=== PATIENT | female | born 1965 | race Caucasian/White ===

== ENCOUNTER → 2018-02-02 13:51 | Outpatient (CLI) | payer OTHER, SELFPAY ==
--- NOTE | 2018-02-02 | DI.MRI.S_ITS ---
PROCEDURE: MR HEAD/BRAIN WO/W CON INDICATIONS: MULTIPLE SCLEROSIS TECHNIQUE: Noncontrast sagittal and axial FLAIR, axial and coronal T2 fast spin echo, axial VIBE, axial gradient echo, axial diffusion and ADC through the brain. After the administration of contrast, axial and coronal VIBE with fat saturation through the brain. COMPARISON: [facility], , MR CERVICAL SPINE WO/W CON, 02/02/2018, 14:25. Outside Facility, RG, MRI C-SPINE WITH CONTRAST, 12/26/2016, 8:14. Outside Facility, RG, MRI HEAD W/WO CONTRAST, 12/26/2016, 7:36. Outside Facility, RG, MRI C-SPINE WITH CONTRAST, 07/23/2015, 9:46. Outside Facility, RG, MRI HEAD W/WO CONTRAST, 07/23/2015, 9:13. FINDINGS: Image quality: Excellent. CSF spaces: Ventricles are normal in size and shape. Basal cisterns are patent. No extra-axial fluid collections. Brain: No intracranial bleeds or mass effects. There are bilateral areas of white matter signal change, most notably within the left frontal periventricular, right frontal, left parietal lobes. These appear unchanged. No definite increase in size or number since prior study dated 12/26/16. Lyons-white matter interface appears intact. No suspicious white matter lesions. No abnormal intracranial enhancement. Diffusion weighted images show no acute ischemic insults. Brainstem appears normal. Normal intravascular flow voids are present. Skull and face: Calvarial marrow signal is normal. Incidental hyperostosis frontalis as before. Orbits appear normal. Sinuses: Sinuses and mastoids are clear. IMPRESSION: Unchanged examination since 12/26/16. Redemonstration of bilateral scattered white matter signal changes which are grossly unchanged in size and number, in keeping with the patient's given clinical history of demyelination disorder. No abnormal enhancement identified. Dictated by: Maynor Mancuso M.D. on 02/03/2018 at 13:36 Approved by: Maynor Mancuso M.D. on 02/03/2018 at 13:43
--- NOTE | 2018-02-02 | DI.MRI.S_ITS ---
PROCEDURE: MR CERVICAL SPINE WO/W CON INDICATIONS: MULTIPLE SCLEOROSIS TECHNIQUE: Noncontrast sagittal T1 spin echo and T2 fast spin echo, sagittal STIR, sagittal PD fast spin echo, foraminal oblique sagittal T2 fast spin echo, axial gradient echo or T2 fast spin echo through the cervical spine. After the administration of contrast, sagittal and axial T1 spin echo with fat saturation through the cervical spine. COMPARISON: [facility], , MR HEAD/BRAIN WO/W CON, 02/02/2018, 14:01. Outside Facility, RG, MRI C-SPINE WITH CONTRAST, 12/26/2016, 8:14. Outside Facility, RG, MRI HEAD W/WO CONTRAST, 12/26/2016, 7:36. Outside Facility, RG, MRI C-SPINE WITH CONTRAST, 07/23/2015, 9:46. Outside Facility, RG, MRI HEAD W/WO CONTRAST, 07/23/2015, 9:13. FINDINGS: Image quality: Excellent. Alignment and curvature: Straightening of the normal cervical lordosis. Marrow: Marrow demonstrates normal overall signal. Spinal cord: Previously described cord signal change primarily at the C3 level is less conspicuous since 12/26/16. Previously described T2 hyperintensity and cord signal change at the level of T3 is grossly stable. No abnormal cord enhancement is seen. No cerebellar tonsillar herniation. Paraspinous soft tissues: No paravertebral masses or suspicious enhancement. C2-C3: Normal appearance. C3-C4: Normal appearance. C4-C5: Bilateral uncovertebral arthropathy and posterior intervening disc osteophyte complex, and bilateral facet arthropathy, mild. No canal stenosis. Mild bilateral foraminal narrowing. C5-C6: Bilateral uncovertebral arthropathy and posterior intervening disc osteophyte complex, and bilateral facet arthropathy. No left foraminal stenosis. Mild right foraminal narrowing. C6-C7: Bilateral uncovertebral arthropathy and posterior intervening disc osteophyte complex, and bilateral facet disease. Minimal central canal narrowing. No right foraminal stenosis minimal left foraminal narrowing. C7-T1: Normal appearance. IMPRESSION: No abnormal cord enhancement. Previously seen cord signal abnormality at C3 is less conspicuous compared to 12/26/16, and quite subtle at this time. Mild thoracic cord signal abnormality at the level of T3, which is grossly unchanged. Mild cervical disc degeneration and facet arthropathy Dictated by: Maynor Mancuso M.D. on 02/03/2018 at 13:43 Approved by: Maynor Mancuso M.D. on 02/03/2018 at 14:03
== END ==
PROVIDERS: Family Provider Chiropractor; Visit Provider Psychiatry & Neurology Neurology
DX: G35 Multiple sclerosis (principal); M50.321 Other cervical disc degeneration at C4-C5 level; M47.812 Spondylosis without myelopathy or radiculopathy, cervical region
CPT/HCPCS: 70553; 72156; A9579

== ENCOUNTER 2018-02-05 18:28 | Emergency (ER) | payer OTHER, SELFPAY ==
--- NOTE | 2018-02-05 18:30 | ED.LOWEXIN ---
HPI - Extremity Injury (Lower) <ROBYN Wright - Last Filed: 02/05/18 22:12> General Chief Complaint: Extremity Injury, Lower Stated Complaint: Broken L Ankle Time Seen by Provider: 02/05/18 18:30 Source: patient Mode of arrival: other Limitations: no limitations History of Present Illness HPI Narrative: 53-year-old female with history of bipolar disorder and is a smoker here for complaint of pain into her left ankle. She has states that earlier today she stepped of 2 steps awkwardly causing her to have ground level fall. Afterwards she had pain into her lateral left ankle. She denies hitting her head. She denies any other injuries. Increased pain with weight-bearing. She was seen at her clinic on or cuts iron and was splinted and sent here for imaging. She denies any direct trauma to the ankle. She reports increased swelling to the lateral aspect of the left ankle. Related Data Home Medications Medication Instructions Recorded Confirmed eszopiclone 1 mg PO PRN PRN #0 05/07/16 Previous Rx's Medication Instructions Recorded oxcarbazepine 150 mg PO BID #60 05/07/16 Allergies Allergy/AdvReac Type Severity Reaction Status Date / Time No Known Allergies Allergy Uncoded 07/01/17 12:41 Review of Systems <ROBYN Wright - Last Filed: 02/05/18 22:12> Constitutional Denies chills, Denies fever(s), Denies lethargy and Denies weakness Eyes Denies change in vision, Denies eye discharge, Denies irritation and Denies loss of vision Cardiovascular Denies chest pain, Denies irregular heart rhythm, Denies lightheadedness, Denies palpitations, Denies dyspnea, Denies dyspnea on exertion and Denies orthopnea Respiratory Denies cough, Denies dyspnea, Denies dyspnea on exertion and Denies wheezing Gastrointestinal Gastrointestinal: Denies abdominal pain, Denies change in bowel habits, Denies diarrhea, Denies nausea and Denies vomiting Genitourinary Denies hematuria, Denies flank pain, Denies urinary incontinence and Denies urinary urgency Musculoskeletal Comments: Left ankle pain and swelling Integumentary/Breasts Denies pruritus, Denies erythema, Denies rash and Denies wounds Neurologic Denies confusion, Denies loss of vision and Denies weakness Psychiatric Denies anxiety, Denies confusion, Denies depression, Denies homicidal ideation and Denies suicidal ideation Endocrine Denies palpitations Hematologic/Lymphatic Denies easy bruising Allergic/Immunologic Denies wheezing Exam <ROBYN Wright - Last Filed: 02/05/18 22:12> Initial Vital Signs Initial Vital Signs: Vital Signs Temperature 98.3 F 02/05/18 18:37 Pulse Rate 67 02/05/18 18:37 Respiratory Rate 18 02/05/18 18:37 Blood Pressure 135/76 02/05/18 18:37 Pulse Oximetry 97 02/05/18 18:37 Const General: cooperative and well developed Nutritional Appearance: well nourished Orientation: alert, awake, oriented x3 and not confused HENMT Mouth: oral mucosae normal and moist mucous membranes Eyes Conjunctivae: conjunctivae normal Sclera: sclerae normal Pupils: PERRL EOM: EOM intact bilaterally Resp Effort & Inspection: normal respiratory effort, able to speak in complete sentences, no respiratory distress and no use of accessory muscles Auscultation: clear to auscultation bilaterally, no rales, no rhonchi and no wheezes Cardio Rate: regular rate Rhythm: regular rhythm Heart Sounds: no click, no gallops, no murmurs and no rubs Pulses: normal peripheral pulses GI Inspection: non-distended Palpation: soft, no hepatosplenomegaly, No guarding, No pulsatile mass and No tender Auscultation: normal bowel sounds Skin General: no rashes or lesions noted, No jaundice and No petechiae Neuro General: alert, oriented x3, gait normal and no focal motor deficits Speech: speech normal Extrem Other: Swelling and tenderness to the lateral aspect of the left ankle. No deformities. Distal sensation is intact. Distal range of motion is intact. Distal pulses are intact <Viji Browning DO - Last Filed: 02/06/18 01:12> Initial Vital Signs Initial Vital Signs: Vital Signs Temperature 98.3 F 02/05/18 18:37 Pulse Rate 67 02/05/18 18:37 Respiratory Rate 18 02/05/18 18:37 Blood Pressure 135/76 02/05/18 18:37 Pulse Oximetry 97 02/05/18 18:37 Course <ROBYN Wright - Last Filed: 02/05/18 22:12> Orders Ordered: ED Orders 02/05/18 18:32 XR ankle LT min 3V Stat Vital Signs - 8 hr 02/05/18 18:37 02/05/18 20:18 Temperature 98.3 F Pulse Rate 67 64 Pulse Rate [Left Dorsalis Pedis] 67 Respiratory Rate 18 16 Blood Pressure 135/76 126/94 H Pulse Oximetry 97 98 <Viji Browning DO - Last Filed: 02/06/18 01:12> Orders Ordered: ED Orders 02/05/18 18:32 XR ankle LT min 3V Stat Vital Signs - 8 hr 02/05/18 18:37 02/05/18 20:18 Temperature 98.3 F Pulse Rate 67 64 Pulse Rate [Left Dorsalis Pedis] 67 Respiratory Rate 18 16 Blood Pressure 135/76 126/94 H Pulse Oximetry 97 98 MDM - Extremity Injury (Lower) <ROBYN Wright - Last Filed: 02/05/18 22:12> Imaging Data Ankle x-ray : Radiologist's impression: [address] [address] XRay Report Signed Patient: Neeta Alatorre RMR#: [id number] : 1965Acct:[id number] Age/Sex: 53 / FDate of Service: 02/05/18 Loc: ED Accession Number: [id number] Procedure: XR ankle LT min 3V Ordering Provider: Olvin Calhoun PROCEDURE: XR ANKLE LT MIN 3V INDICATIONS: injury, pain TECHNIQUE: 3 views of the ankle were acquired. COMPARISON: None. FINDINGS: Bones: No fractures or dislocations. Ankle mortise is normally aligned. No suspicious bony lesions. Soft tissues: No tibiotalar joint effusion. Achilles tendon appears normal. IMPRESSION: No trauma found. Dictated by: Augustine Santo M.D. on 02/05/2018 at 19:31 Approved by: Augustine Santo M.D. on 02/05/2018 at 19:32 [facility] Narrative Medical decision making narrative: X-ray of the left ankle was obtained and is negative for any acute findings. Signs and symptoms presents as a sprain into the left ankle. She is placed in a gel stirrup splint for comfort and support. She is also provided with crutches for nonweightbearing. Slowly advance activity as tolerated. [id number] Tylenol or Motrin as needed for any discomfort. Follow up with primary care provider the next few days for re-evaluation. For any worsening symptoms return emergency room for Discharge Plan Departure Patient Disposition: Home Clinical Impression: Left ankle sprain Discharge Date/Time: 02/05/18 20:20 Interventions: ED Discharge Assessment Last Done: 02/05/18 20:18 Instructions: DI for Ankle Sprain Activity Restrictions/Additional Instructions: X-ray of the left ankle was negative for any fractures. Signs and symptoms presents as a sprain to the left ankle. You have been placed in a splint for comfort and support use as directed. Use crutches for nonweightbearing until you are able to bear weight pain free. Use [id number] Tylenol or Motrin as needed for any discomfort. Ice and elevation help with any swelling. Slowly advance activity as tolerated. Follow up with her primary care provider. For any worsening symptoms return to the emergency room. Prescriptions: No Action eszopiclone 1 MG tablet 1 mg PO PRN PRNQty: 0 RF: 0 oxcarbazepine 150 MG tablet 150 mg PO BID Qty: 60 RF: 0 Referrals: Replaced By [facility] [Provider Group] <Viji Browning DO - Last Filed: 02/06/18 01:12> Cosign ED Attending Cosignature Attestation: I was immediately available in the department for consultation. This documentation has been reviewed and I agree with assessment and plan. Supervised by Viji Browning DO
[2018-02-05 18:37] VITALS: BP 135/76; PULSE 67; RESP 18; TEMP 36.8; O2SAT 97; BMI 30.5
[2018-02-05 20:18] VITALS: BP 126/94; PULSE 64; RESP 16; O2SAT 98
--- NOTE | 2018-02-05 20:19 | PC.NURSE ---
Pt states Pain is tolerable, reports 3/10 pain on discharge
== END 2018-02-05 20:20 | disposition home or self-care (01) ==
PROVIDERS: Emergency Provider Nurse Practitioner Family; Family Provider Chiropractor
DX: S93.402A Sprain of unspecified ligament of left ankle, initial encounter (principal); W10.8XXA Fall (on) (from) other stairs and steps, initial encounter
CPT/HCPCS: 29540; 73610; 99283

== ENCOUNTER 2018-08-09 14:20 | Emergency (ER) | payer BC, SELFPAY ==
[2018-08-09 14:24] VITALS: BP 113/73; PULSE 61; RESP 16; TEMP 36.7; O2SAT 100; BMI 29.7
[2018-08-09 14:53] LABS: Prothrombin Time 11.4 SECONDS (10.1-12.7)
[2018-08-09 14:56] LABS: PTT Partial Thromboplastin Tim 32 SECONDS (26.4-36.2)
[2018-08-09 14:57] LABS: Add Manual Diff / Slide Review NO; Basophils Absolute Auto 0 /uL (0-100); Basophils Percent Auto 0.7 % (0-2); Eosinophils Absolute Auto 100 /uL (0-450); Eosinophils Percent Auto 1.3 % (2-4); Hematocrit 41.9 % (36-46); Hemoglobin 14.1 g/dL (12.0-16.0); Lymphocytes Absolute Auto 600 /uL (1100-4500); Mean Corpuscular HGB Conc 33.8 % (30-36); Mean Corpuscular Hemoglobin 31.9 PG (26-34); Mean Corpuscular Volume 94.5 fL (80-100); Monocytes Absolute Auto 700 /uL (0-900); Monocytes Percent Auto 17.6 % (3-14); Neutrophils Absolute Auto 2800 /uL (1500-7000); Neutrophils Percent Auto 66.4 % (50-75); Platelet Count 229 X10^3/uL (150-400); Red Blood Cell Count 4.43 X10^6/uL (4.0-5.2); Red Cell Distribution Width 13.6 % (11.6-14.8); White Blood Cell Count 4.1 X10^3/uL (4.5-11.0)
[2018-08-09 14:58] LABS: Alanine Aminotransferase 17 IU/L (9-52); Albumin 4.5 g/dL (3.5-5.0); Albumin Globulin Ratio 1.6 (1.0-2.8); Alkaline Phosphatase 50 U/L (38-126); Aspartate Aminotransferase 24 IU/L (14-36); Bilirubin Total 0.4 mg/dL (0.2-1.3); Blood Urea Nitrogen 14 mg/dL (7-17); Calcium 9.9 mg/dL (8.4-10.2); Carbon Dioxide 27 mmol/L (22-32); Chloride 103 mmol/L (98-107); Estimated Glomerular Filt Rate > 60.0 mL/min (>60); Globulin 2.9 g/dL (1.7-4.1); Glucose 82 mg/dL (70-100); HEMOLYSIS 23 (0-50); Lipase 125 U/L (23-300); Potassium 3.7 mmol/L (3.4-5.1); Sodium 141 mmol/L (137-145); Total Protein 7.4 g/dL (6.3-8.2)
[2018-08-09 15:15] LABS: D Dimer < 200 ng/mL (<230)
--- NOTE | 2018-08-09 15:48 | DI.US.S_ITS ---
PROCEDURE: US ABDOMEN LIMITED INDICATIONS: RIGHT UPPER QUADRANT PAIN TECHNIQUE: Real-time focused scanning was performed of the abdomen, with image documentation. COMPARISON: None. FINDINGS: The gallbladder is slightly contracted. However the patient was suboptimally prepped (non-n.p.o. status). Otherwise, the gallbladder is unremarkable. No wall thickening is seen. No sonographic Call's sign or pericholecystic fluid. Pancreas grossly unremarkable. No intra-or extra hepatic bile duct dilatation seen IMPRESSION: Overall, unremarkable examination as above. Dictated by: Maynor Mancuso M.D. on 08/09/2018 at 16:38 Approved by: Maynor Mancuso M.D. on 08/09/2018 at 16:40
[2018-08-09 16:00] VITALS: BP 118/63; PULSE 56; RESP 16; O2SAT 100
--- NOTE | 2018-08-09 17:42 | DI.CT.S_ITS ---
PROCEDURE: CT ABDOMEN PELVIS W CON INDICATIONS: RUQ pain x 3 day, tender to palp TECHNIQUE: After the administration of intravenous contrast, 5 mm thick sections acquired from the diaphragm to the symphysis. 5 mm coronal and sagittal reformats were acquired. For radiation dose reduction, the following was used: automated exposure control, adjustment of mA and/or kV according to patient size. COMPARISON: [facility], , ABDOMEN LIMITED, 08/09/2018, 16:07. FINDINGS: Image quality: Excellent. ABDOMEN: Lung bases: Lung bases are clear. Heart size is normal. Solid organs: Liver is normal in size and enhancement. Gallbladder wall is not thickened. Biliary system is non dilated. Pancreas enhances normally. Spleen is normal in size and enhancement. No adrenal nodules. Kidneys demonstrate normal size and enhancement, without hydronephrosis. At the inferior pole of the right kidney, there is a nonobstructing stone seen and measures 5 mm. Peritoneum and bowel: Bowel loops demonstrate normal wall thickness and caliber. No free fluid or air. Nodes and vessels: No retroperitoneal or mesenteric adenopathy by size criteria. Aorta and inferior vena cava are normal in size. Miscellaneous: There is a trivial fat-containing paraumbilical hernia present. PELVIS: Genitourinary: Bladder wall thickness is normal. Miscellaneous: No inguinal hernias or adenopathy. Bones: No suspicious bony lesions. There is a mild central compression deformity seen of L5, without acute features. No acute vertebral body compression fractures. Mild levoconvex scoliotic curvature is noted. IMPRESSION: No imaging explanation is found for this patient's presenting history of right upper quadrant pain. Incidental note is made of: 5 mm nonobstructing right-sided kidney stone Levoconvex scoliotic curvature Trivial fat-containing periumbilical hernia Dictated by: Tylor Wells M.D. on 08/09/2018 at 17:07 Approved by: Tylor Wells M.D. on 08/09/2018 at 17:10
--- NOTE | 2018-08-09 17:45 | ED.ABDPAIN ---
HPI - Abdominal Pain <ROBYN Sanchez - Last Filed: 08/09/18 23:19> General Chief Complaint: Abdominal Pain Stated Complaint: gallbladder issues Time Seen by Provider: 08/09/18 15:04 Source: patient Mode of arrival: ambulatory Limitations: no limitations History of Present Illness HPI narrative: 53-year-old female with a history of bipolar disorder, presents the emergency department today complaining of right upper quadrant pain x 1 month after being evaluated by primary care provider. Pain is constant 3/10 aching, worse with palpation. Associated shortness of breath adn fatigue x 3 weeks, states that she feels like there is pressure in her abdomen. Also complains of constipation and occasional bouts of nausea. Patient had a similar episode last year at this time she presented to the emergency department and her CT scan was negative at this time. Her primary care provider was concerned that she might have gallbladder dyskinesia. Denies chest pain, shortness of breath that is worse with activity, vomiting, worsening pain with eating, orthopnea, fevers, or chills. MD complaint: abdominal pain Onset (ago): week(s) Pain Consistency: constant and intermittent Location: RUQ Severity scale (1-10): 3 Quality: fullness and other (fullness) Radiation: none Exacerbating factors: movement Associated symptoms: other (SOB) Related Data Patient : No Home Medications Medication Instructions Recorded Confirmed eszopiclone 1 mg PO PRN PRN #0 05/07/16 08/09/18 fingolimod [Gilenya] 0.5 mg PO DAILY 08/09/18 08/09/18 gabapentin 100 mg PO TID 08/09/18 08/09/18 lithium carbonate 150 mg PO BID 08/09/18 08/09/18 Previous Rx's Medication Instructions Recorded oxcarbazepine 150 mg PO BID #60 05/07/16 sulfamethoxazole-trimethoprim 1 tab PO BID #6 tab 08/09/18 Allergies Allergy/AdvReac Type Severity Reaction Status Date / Time No Known Allergies Allergy Uncoded 07/01/17 12:41 Review of Systems <ROBYN Sanchez - Last Filed: 08/09/18 23:19> Constitutional Denies chills, Reports fatigue (for 1 month), Denies fever(s) and Denies weakness Eyes Denies change in vision, Denies eye discharge and Denies loss of vision ENT Ears, Nose, Mouth, and Throat: Denies change in voice and Denies neck pain Cardiovascular Denies chest pain, Denies irregular heart rhythm, Denies lightheadedness, Denies palpitations, Denies dyspnea, Denies dyspnea on exertion and Denies orthopnea Respiratory Denies cough, Denies dyspnea, Denies dyspnea on exertion and Denies wheezing Gastrointestinal Gastrointestinal: Reports abdominal pain (RUQ), Denies change in bowel habits, Reports constipation (For the past 3 days), Denies cramping, Denies diarrhea, Reports nausea (intermittent) and Denies vomiting Genitourinary Denies hematuria, Denies flank pain, Denies urinary incontinence, Denies urinary urgency and Reports other ([place] during intercourse ) Musculoskeletal Denies neck pain Integumentary/Breasts Denies pruritus, Denies erythema, Denies rash and Denies wounds Neurologic Denies confusion, Denies loss of vision and Denies weakness Psychiatric Denies anxiety, Denies confusion and Denies depression Endocrine Reports fatigue (for 1 month) and Denies palpitations Hematologic/Lymphatic Denies easy bruising Allergic/Immunologic Denies wheezing PFSH <ROBYN Sanchez - Last Filed: 08/09/18 23:19> Medical History Multiple sclerosis (Chronic) Surgical History Status post breast reduction Family History Brother Age: 64 Alcoholic Father Heart disease Essential hypertension High cholesterol Mental health problem Mother Alcoholic Social History Smoking Status: Former smoker Family History Brother Age: 64 Alcoholic Father Heart disease Essential hypertension High cholesterol Mental health problem Mother Alcoholic Social History Smoking Status: Former smoker Exam <ROBYN Sanchez - Last Filed: 08/09/18 23:19> Initial Vital Signs Initial Vital Signs: Vital Signs Temperature 98.1 F 08/09/18 14:24 Pulse Rate 61 05/20/19 14:24 Respiratory Rate 16 08/09/18 14:24 Blood Pressure 113/73 08/09/18 14:24 Pulse Oximetry 100 08/09/18 14:24 Const General: cooperative and well developed Nutritional Appearance: well nourished Orientation: alert, awake, oriented x3 and not confused [facility] Head: normocephalic and atraumatic Nose: external nose normal Mouth: oral mucosae normal and moist mucous membranes Eyes General: appearance normal, both eyes and all related structures Eyelids: eyelids normal Conjunctivae: conjunctivae normal Sclera: sclerae normal Pupils: PERRL EOM: EOM intact bilaterally Neck Neck: normal visual inspection, trachea midline, No lymphadenopathy, No midline deformity and No JVD Lymphatic: No lymphedema Chest Chest: normal inspection of the chest Resp Effort & Inspection: normal respiratory effort, able to speak in complete sentences, no respiratory distress and no use of accessory muscles Auscultation: clear to auscultation bilaterally, no rales, no rhonchi and no wheezes Cardio Rate: regular rate Rhythm: regular rhythm Heart Sounds: no click, no gallops, no murmurs and no rubs Pulses: normal peripheral pulses GI Inspection: non-distended Palpation: soft, no hepatosplenomegaly, guarding, No pulsatile mass and tender (RUQ tenderness with deep palpation, + call's sign. ) Percussion: normal to percussion Auscultation: normal bowel sounds Back/Spine/Pelvis Back: No CVA tenderness Cervical Spine: cervical ROM normal and No pain with cervical ROM Skin General: no rashes or lesions noted, No jaundice and No petechiae Neuro General: alert, oriented x3, gait normal and no focal motor deficits Speech: speech normal Extrem General: full ROM, no clubbing, cyanosis or edema, no pedal edema and no calf tenderness Psych Appearance: well kempt Mental Status: mental status grossly normal Attitude: cooperative Thought Content: normal and suicidality Judgment: judgment good <Viji Browning, - Last Filed: 08/11/18 18:36> Initial Vital Signs Initial Vital Signs: Vital Signs Temperature 98.1 F 08/09/18 14:24 Pulse Rate 61 08/09/18 14:24 Respiratory Rate 16 08/09/18 14:24 Blood Pressure 113/73 08/09/18 14:24 Pulse Oximetry 100 08/09/18 14:24 Course <ROBYN Sanchez - Last Filed: 08/09/18 23:19> Course Narrative: The patient initially hiatal scan, discussed with patient that was not possible to order in the emergency department. Discussed pros and cons to abdominal CT, patient agreed she would like to obtain an abdominal CT. Orders Ordered: ED Orders 08/09/18 14:28 Complete Blood Count AUTO DIFF Stat Comprehensive Metabolic Panel Stat Lipase Stat Partial Thromboplastin Time Stat Prothrombin Time INR Stat 08/09/18 14:29 DD [D Dimer] Stat 08/09/18 15:04 EKG-12 Lead Stat 08/09/18 15:48 US abdomen limited Stat 08/09/18 17:42 CT abdomen pelvis w con Stat Reevaluation(s) Reevaluation #1: Consultations Consultation #1: Staffed with Dr. Browning who agrees with plan of care. Vital Signs - 8 hr 08/09/18 16:00 08/09/18 18:00 Pulse Rate 56 L 60 Respiratory Rate 16 17 Blood Pressure [Right Arm] 118/63 143/71 H Pulse Oximetry 100 100 <Viji Browning DO - Last Filed: 08/11/18 18:36> Orders Ordered: ED Orders 08/09/18 14:28 Complete Blood Count AUTO DIFF Stat Comprehensive Metabolic Panel Stat Lipase Stat Partial Thromboplastin Time Stat Prothrombin Time INR Stat 08/09/18 14:29 DD [D Dimer] Stat 08/09/18 15:04 EKG-12 Lead Stat 08/09/18 15:48 US abdomen limited Stat 08/09/18 17:42 CT abdomen pelvis w con Stat Vital Signs - 8 hr 08/09/18 16:00 08/09/18 18:00 Pulse Rate 56 L 60 Respiratory Rate 16 17 Blood Pressure [Right Arm] 118/63 143/71 H Pulse Oximetry 100 100 MDM - Abdominal Pain <ROBYN Sanchez - Last Filed: 08/09/18 23:19> Differential Diagnosis Differential diagnosis: Likely calculus of kidney and other (gallbladder dyskinesia ) Medical Records Attestation: I reviewed the patient's medical records. Lab Data Attestation: I reviewed the patient's lab results. Result diagrams: 08/09/18 14:28 08/09/18 14:28 Lab Results 08/09/18 08/09/18 08/09/18 Range/Units 14:28 14:28 14:28 WBC 4.1 L (4.5-11.0) X10^3/uL RBC 4.43 (4.0-5.2) X10^6/uL Hgb 14.1 (12.0-16.0) g/dL Hct 41.9 (36-46) % MCV 94.5 (80-100) fL MCH 31.9 (26-34) PG MCHC 33.8 (30-36) % RDW 13.6 (11.6-14.8) % Plt Count 229 (150-400) X10^3/uL Neut % (Auto) 66.4 (50-75) % Lymph % (Auto) 14.0 L (25-40) % [place] % (Auto) 17.6 H (3-14) % Eos % (Auto) 1.3 L (2-4) % Baso % (Auto) 0.7 (0-2) % Neut # (Auto) 2800 (3875-1522) /uL Lymph # (Auto) 600 L (6518-7433) /uL [place] # (Auto) 700 (0-900) /uL Eos # (Auto) 100 (0-450) /uL Baso # (Auto) 0 (0-100) /uL PT 11.4 (10.1-12.7) SECONDS INR 1.0 (0.9-1.3) APTT 32 (26.4-36.2) SECONDS D-Dimer (<230) ng/mL Sodium 141 (137-145) mmol/L Potassium 3.7 (3.4-5.1) mmol/L Chloride 103 (98-107) mmol/L Carbon Dioxide 27 (22-32) mmol/L BUN 14 (7-17) mg/dL Creatinine 0.70 (0.52-1.04) mg/dL Estimated GFR > 60.0 (>60) mL/min BUN/Creatinine Ratio 20.0 (6-22) Glucose 82 (70-100) mg/dL Calcium 9.9 (8.4-10.2) mg/dL Total Bilirubin 0.4 (0.2-1.3) mg/dL AST 24 (14-36) IU/L ALT 17 (9-52) IU/L Alkaline Phosphatase 50 (38-126) U/L Total Protein 7.4 (6.3-8.2) g/dL Albumin 4.5 (3.5-5.0) g/dL Globulin 2.9 (1.7-4.1) g/dL Albumin/Globulin Ratio 1.6 (1.0-2.8) Lipase 125 (23-300) U/L 08/09/18 08/09/18 Range/Units 14:29 15:04 WBC (4.5-11.0) X10^3/uL RBC (4.0-5.2) X10^6/uL Hgb (12.0-16.0) g/dL Hct (36-46) % MCV (80-100) fL MCH (26-34) PG MCHC (30-36) % RDW (11.6-14.8) % Plt Count (150-400) X10^3/uL Neut % (Auto) (50-75) % Lymph % (Auto) (25-40) % [place] % (Auto) (3-14) % Eos % (Auto) (2-4) % Baso % (Auto) (0-2) % Neut # (Auto) (9086-5949) /uL Lymph # (Auto) (7013-3390) /uL [place] # (Auto) (0-900) /uL Eos # (Auto) (0-450) /uL Baso # (Auto) (0-100) /uL PT (10.1-12.7) SECONDS INR (0.9-1.3) APTT (26.4-36.2) SECONDS D-Dimer < 200 Cancelled (<230) ng/mL Sodium (137-145) mmol/L Potassium (3.4-5.1) mmol/L Chloride (98-107) mmol/L Carbon Dioxide (22-32) mmol/L BUN (7-17) mg/dL Creatinine (0.52-1.04) mg/dL Estimated GFR (>60) mL/min BUN/Creatinine Ratio (6-22) Glucose (70-100) mg/dL Calcium (8.4-10.2) mg/dL Total Bilirubin (0.2-1.3) mg/dL AST (14-36) IU/L ALT (9-52) IU/L Alkaline Phosphatase (38-126) U/L Total Protein (6.3-8.2) g/dL Albumin (3.5-5.0) g/dL Globulin (1.7-4.1) g/dL Albumin/Globulin Ratio (1.0-2.8) Lipase (23-300) U/L Point of care testing: Point of Care Testing Test Results Negative Urine Dip Bedside Urine Glucose Negative Bedside Urine Bilirubin - Negative Bedside Urine Ketone - Negative Urine Specific [place] 1.030 Bedside Urine Occult Blood +/- Bedside Urine pH 5.0 Bedside Urine Protein - Negative Bedside Urine Urobilinogen - Negative Bedside Urine Nitrite + Positive Bedside Urine Leukocytes ++ [address] scan - abdomen: Radiologist's impression: [facility] [place] [id number] CT Scan Report Signed Patient: Neeta Alatorre RMR#: [id number] : 1965Acct:[id number] Age/Sex: 53 / FDate of Service: 08/09/18 Loc: ED Accession Number: [id number] Procedure: CT abdomen pelvis w con Ordering Provider: Amy Cali PROCEDURE: CT ABDOMEN PELVIS W CON INDICATIONS: RUQ pain x 3 day, tender to palp TECHNIQUE: After the administration of intravenous contrast, 5 mm thick sections acquired from the diaphragm to the symphysis. 5 mm coronal and sagittal reformats were acquired. For radiation dose reduction, the following was used: automated exposure control, adjustment of mA and/or kV according to patient size. COMPARISON: [facility], ABDOMEN LIMITED, 08/09/2018, 16:07. FINDINGS: Image quality: Excellent. ABDOMEN: Lung bases: Lung bases are clear. Heart size is normal. Solid organs: Liver is normal in size and enhancement. Gallbladder wall is not thickened. Biliary system is non dilated. Pancreas enhances normally. Spleen is normal in size and enhancement. No adrenal nodules. Kidneys demonstrate normal size and enhancement, without hydronephrosis. At the inferior pole of the right kidney, there is a nonobstructing stone seen and measures 5 mm. Peritoneum and bowel: Bowel loops demonstrate normal wall thickness and caliber. No free fluid or air. Nodes and vessels: No retroperitoneal or mesenteric adenopathy by size criteria. Aorta and inferior vena cava are normal in size. Miscellaneous: There is a trivial fat-containing paraumbilical hernia present. PELVIS: Genitourinary: Bladder wall thickness is normal. Miscellaneous: No inguinal hernias or adenopathy. Bones: No suspicious bony lesions. There is a mild central compression deformity seen of L5, without acute features. No acute vertebral body compression fractures. Mild levoconvex scoliotic curvature is noted. IMPRESSION: No imaging explanation is found for this patient's presenting history of right upper quadrant pain. Incidental note is made of: 5 mm nonobstructing right-sided kidney stone Levoconvex scoliotic curvature Trivial fat-containing periumbilical hernia Dictated by: Tylor Wells M.D. on 08/09/2018 at 17:07 Approved by: Tylor Wells M.D. on 08/09/2018 at 17:10 US - abdomen: Radiologist's impression: [place] [address] Ultrasound Report Signed Patient: Neeta Alatorre RMR#: [id number] : 1965Acct:[id number] Age/Sex: 53 / FDate of Service: 08/09/18 Loc: ED Accession Number: [id number] Procedure: US abdomen limited Ordering Provider: Viji Browning D.O. PROCEDURE: US ABDOMEN LIMITED INDICATIONS: RIGHT UPPER QUADRANT PAIN TECHNIQUE: Real-time focused scanning was performed of the abdomen, with image documentation. COMPARISON: None. FINDINGS: The gallbladder is slightly contracted. However the patient was suboptimally prepped (non-n.p.o. status). Otherwise, the gallbladder is unremarkable. No wall thickening is seen. No sonographic Call's sign or pericholecystic fluid. Pancreas grossly unremarkable. No intra-or extra hepatic bile duct dilatation seen IMPRESSION: Overall, unremarkable examination as above. Dictated by: Maynor Mancuso M.D. on 08/09/2018 at 16:38 Approved by: Maynor Mancuso M.D. on 08/09/2018 at 16:40 ECG Data Attestation: I personally reviewed and interpreted this ECG as follows: Interpretation: Sinus rhythm, heart rate 59, WV interval 190, QTC 427, no ST elevation, or T-wave inversion, no ectopy. Also reviewed by Dr. Browning. MDM Narrative Medical decision making narrative: I suspect her symptoms are caused by gallbladder dyskinesia or UTI (type of pain, negative imaging, positive urinalysis for leuks and nitrates, negative). Less likely DVT ( negative D-dimer, no tachycardia, no dyspnea, low risk factors), liver disease, pancreatic disease, gallstones, renal stone (negative labs, lack of other symptoms, CT findings). Strict return precautions given. Follow up instructions discussed. Patient agreeable to plan of care. <Viji Browning, DO - Last Filed: 08/11/18 18:36> Lab Data Lab Results 08/09/18 08/09/18 08/09/18 Range/Units 14:28 14:28 14:28 WBC 4.1 L (4.5-11.0) X10^3/uL RBC 4.43 (4.0-5.2) X10^6/uL Hgb 14.1 (12.0-16.0) g/dL Hct 41.9 (36-46) % MCV 94.5 (80-100) fL MCH 31.9 (26-34) PG MCHC 33.8 (30-36) % RDW 13.6 (11.6-14.8) % Plt Count 229 (150-400) X10^3/uL Neut % (Auto) 66.4 (50-75) % Lymph % (Auto) 14.0 L (25-40) % [place] % (Auto) 17.6 H (3-14) % Eos % (Auto) 1.3 L (2-4) % Baso % (Auto) 0.7 (0-2) % Neut # (Auto) 2800 (2907-0841) /uL Lymph # (Auto) 600 L (5265-8845) /uL [place] # (Auto) 700 (0-900) /uL Eos # (Auto) 100 (0-450) /uL Baso # (Auto) 0 (0-100) /uL PT 11.4 (10.1-12.7) SECONDS INR 1.0 (0.9-1.3) APTT 32 (26.4-36.2) SECONDS D-Dimer (<230) ng/mL Sodium 141 (137-145) mmol/L Potassium 3.7 (3.4-5.1) mmol/L Chloride 103 (98-107) mmol/L Carbon Dioxide 27 (22-32) mmol/L BUN 14 (7-17) mg/dL Creatinine 0.70 (0.52-1.04) mg/dL Estimated GFR > 60.0 (>60) mL/min BUN/Creatinine Ratio 20.0 (6-22) Glucose 82 (70-100) mg/dL Calcium 9.9 (8.4-10.2) mg/dL Total Bilirubin 0.4 (0.2-1.3) mg/dL AST 24 (14-36) IU/L ALT 17 (9-52) IU/L Alkaline Phosphatase 50 (38-126) U/L Total Protein 7.4 (6.3-8.2) g/dL Albumin 4.5 (3.5-5.0) g/dL Globulin 2.9 (1.7-4.1) g/dL Albumin/Globulin Ratio 1.6 (1.0-2.8) Lipase 125 (23-300) U/L 08/09/18 08/09/18 Range/Units 14:29 15:04 WBC (4.5-11.0) X10^3/uL RBC (4.0-5.2) X10^6/uL Hgb (12.0-16.0) g/dL Hct (36-46) % MCV (80-100) fL MCH (26-34) PG MCHC (30-36) % RDW (11.6-14.8) % Plt Count (150-400) X10^3/uL Neut % (Auto) (50-75) % Lymph % (Auto) (25-40) % [place] % (Auto) (3-14) % Eos % (Auto) (2-4) % Baso % (Auto) (0-2) % Neut # (Auto) (5532-9736) /uL Lymph # (Auto) (1681-3845) /uL [place] # (Auto) (0-900) /uL Eos # (Auto) (0-450) /uL Baso # (Auto) (0-100) /uL PT (10.1-12.7) SECONDS INR (0.9-1.3) APTT (26.4-36.2) SECONDS D-Dimer < 200 Cancelled (<230) ng/mL Sodium (137-145) mmol/L Potassium (3.4-5.1) mmol/L Chloride (98-107) mmol/L Carbon Dioxide (22-32) mmol/L BUN (7-17) mg/dL Creatinine (0.52-1.04) mg/dL Estimated GFR (>60) mL/min BUN/Creatinine Ratio (6-22) Glucose (70-100) mg/dL Calcium (8.4-10.2) mg/dL Total Bilirubin (0.2-1.3) mg/dL AST (14-36) IU/L ALT (9-52) IU/L Alkaline Phosphatase (38-126) U/L Total Protein (6.3-8.2) g/dL Albumin (3.5-5.0) g/dL Globulin (1.7-4.1) g/dL Albumin/Globulin Ratio (1.0-2.8) Lipase (23-300) U/L Point of care testing: Point of Care Testing Test Results Negative Urine Dip Bedside Urine Glucose Negative Bedside Urine Bilirubin - Negative Bedside Urine Ketone - Negative Urine Specific [place] 1.030 Bedside Urine Occult Blood +/- Bedside Urine pH 5.0 Bedside Urine Protein - Negative Bedside Urine Urobilinogen - Negative Bedside Urine Nitrite + Positive Bedside Urine Leukocytes ++ 125 Esterase Discharge Plan Departure Patient Disposition: Home Clinical Impression: UTI (urinary tract infection) Qualifiers: Urinary tract infection type: acute cystitis Hematuria presence: without hematuria Qualified Code(s): N30.00 - Acute cystitis without hematuria Abdominal pain Qualifiers: Abdominal location: right upper quadrant Qualified Code(s): R10.11 - Right upper quadrant pain Discharge Date/Time: 08/09/18 18:46 Interventions: ED Discharge Assessment Last Done: 08/09/18 18:45 Instructions: DI for Urinary Tract Infection (UTI), DI for Abdominal Pain-Adult Activity Restrictions/Additional Instructions: As we discussed, you're CT, labs, and ultrasound do not explain your abdominal pain. You're urine results show a possible urinary tract infection, so I am prescribing antibiotics to treat that. Please follow up with her primary care provider for further testing. Return if he developed chest pain, shortness of breath, syncope, and confusion. Thank you for the opportunity to provide care to you today. Prescriptions: New sulfamethoxazole-trimethoprim 800-160 mg tablet 1 tab PO BID Qty: 6 RF: 0 No Action eszopiclone 1 MG tablet 1 mg PO PRN PRN (Reason: Sleep) Qty: 0 RF: 0 oxcarbazepine 150 MG tablet 150 mg PO BID Qty: 60 RF: 0 lithium carbonate 150 mg capsule 150 mg PO BID RF: 0 gabapentin 100 mg capsule 100 mg PO TID RF: 0 Gilenya 0.5 mg capsule 0.5 mg PO DAILY RF: 0 <Viji Browning DO - Last Filed: 08/11/18 18:36> Cosign ED Attending Cosignature Attestation: I was immediately available in the department for consultation, case was discussed, labs/imaging reviewed. This documentation has been reviewed and I agree with assessment and plan. Supervised by Viji Browning DO
--- NOTE | 2018-08-09 17:52 | ED_ITS ---
HPI - Abdominal Pain <ROBYN Sanchez - Last Filed: 08/09/18 23:19> General Chief Complaint: Abdominal Pain Stated Complaint: gallbladder issues Time Seen by Provider: 08/09/18 15:04 Source: patient Mode of arrival: ambulatory Limitations: no limitations History of Present Illness HPI narrative: 53-year-old female with a history of bipolar disorder, presents the emergency department today complaining of right upper quadrant pain x 1 month after being evaluated by primary care provider. Pain is constant 3/10 aching, worse with palpation. Associated shortness of breath adn fatigue x 3 weeks, states that she feels like there is pressure in her abdomen. Also complains of constipation and occasional bouts of nausea. Patient had a similar episode last year at this time she presented to the emergency department and her CT scan was negative at this time. Her primary care provider was concerned that she might have gallbladder dyskinesia. Denies chest pain, shortness of breath that is worse with activity, vomiting, worsening pain with eating, orthopnea, fevers, or chills. MD complaint: abdominal pain Onset (ago): week(s) Pain Consistency: constant and intermittent Location: RUQ Severity scale (1-10): 3 Quality: fullness and other (fullness) Radiation: none Exacerbating factors: movement Associated symptoms: other (SOB) Related Data Patient : No Home Medications Medication Instructions Recorded Confirmed eszopiclone 1 mg PO PRN PRN #0 05/07/16 08/09/18 fingolimod [Gilenya] 0.5 mg PO DAILY 08/09/18 08/09/18 gabapentin 100 mg PO TID 08/09/18 08/09/18 lithium carbonate 150 mg PO BID 08/09/18 08/09/18 Previous Rx's Medication Instructions Recorded oxcarbazepine 150 mg PO BID #60 05/07/16 sulfamethoxazole-trimethoprim 1 tab PO BID #6 tab 08/09/18 Allergies Allergy/AdvReac Type Severity Reaction Status Date / Time No Known Allergies Allergy Uncoded 07/01/17 12:41 Review of Systems <ROBYN Sanchez - Last Filed: 08/09/18 23:19> Constitutional Denies chills, Reports fatigue (for 1 month), Denies fever(s) and Denies weakness Eyes Denies change in vision, Denies eye discharge and Denies loss of vision ENT Ears, Nose, Mouth, and Throat: Denies change in voice and Denies neck pain Cardiovascular Denies chest pain, Denies irregular heart rhythm, Denies lightheadedness, Denies palpitations, Denies dyspnea, Denies dyspnea on exertion and Denies orthopnea Respiratory Denies cough, Denies dyspnea, Denies dyspnea on exertion and Denies wheezing Gastrointestinal Gastrointestinal: Reports abdominal pain (RUQ), Denies change in bowel habits, Reports constipation (For the past 3 days), Denies cramping, Denies diarrhea, Reports nausea (intermittent) and Denies vomiting Genitourinary Denies hematuria, Denies flank pain, Denies urinary incontinence, Denies urinary urgency and Reports other ([place] during intercourse ) Musculoskeletal Denies neck pain Integumentary/Breasts Denies pruritus, Denies erythema, Denies rash and Denies wounds Neurologic Denies confusion, Denies loss of vision and Denies weakness Psychiatric Denies anxiety, Denies confusion and Denies depression Endocrine Reports fatigue (for 1 month) and Denies palpitations Hematologic/Lymphatic Denies easy bruising Allergic/Immunologic Denies wheezing PFSH <ROBYN Sanchez - Last Filed: 08/09/18 23:19> Medical History Multiple sclerosis (Chronic) Surgical History Status post breast reduction Family History Brother Age: 64 Alcoholic Father Heart disease Essential hypertension High cholesterol Mental health problem Mother Alcoholic Social History Smoking Status: Former smoker Family History Brother Age: 64 Alcoholic Father Heart disease Essential hypertension High cholesterol Mental health problem Mother Alcoholic Social History Smoking Status: Former smoker Exam <ROBYN Sanchez - Last Filed: 08/09/18 23:19> Initial Vital Signs Initial Vital Signs: Vital Signs Temperature 98.1 F 08/09/18 14:24 Pulse Rate 61 05/20/19 14:24 Respiratory Rate 16 08/09/18 14:24 Blood Pressure 113/73 08/09/18 14:24 Pulse Oximetry 100 08/09/18 14:24 Const General: cooperative and well developed Nutritional Appearance: well nourished Orientation: alert, awake, oriented x3 and not confused [facility] Head: normocephalic and atraumatic Nose: external nose normal Mouth: oral mucosae normal and moist mucous membranes Eyes General: appearance normal, both eyes and all related structures Eyelids: eyelids normal Conjunctivae: conjunctivae normal Sclera: sclerae normal Pupils: PERRL EOM: EOM intact bilaterally Neck Neck: normal visual inspection, trachea midline, No lymphadenopathy, No midline deformity and No JVD Lymphatic: No lymphedema Chest Chest: normal inspection of the chest Resp Effort & Inspection: normal respiratory effort, able to speak in complete sentences, no respiratory distress and no use of accessory muscles Auscultation: clear to auscultation bilaterally, no rales, no rhonchi and no wheezes Cardio Rate: regular rate Rhythm: regular rhythm Heart Sounds: no click, no gallops, no murmurs and no rubs Pulses: normal peripheral pulses GI Inspection: non-distended Palpation: soft, no hepatosplenomegaly, guarding, No pulsatile mass and tender (RUQ tenderness with deep palpation, + call's sign. ) Percussion: normal to percussion Auscultation: normal bowel sounds Back/Spine/Pelvis Back: No CVA tenderness Cervical Spine: cervical ROM normal and No pain with cervical ROM Skin General: no rashes or lesions noted, No jaundice and No petechiae Neuro General: alert, oriented x3, gait normal and no focal motor deficits Speech: speech normal Extrem General: full ROM, no clubbing, cyanosis or edema, no pedal edema and no calf tenderness Psych Appearance: well kempt Mental Status: mental status grossly normal Attitude: cooperative Thought Content: normal and suicidality Judgment: judgment good <Viji Browning, - Last Filed: 08/11/18 18:36> Initial Vital Signs Initial Vital Signs: Vital Signs Temperature 98.1 F 08/09/18 14:24 Pulse Rate 61 08/09/18 14:24 Respiratory Rate 16 08/09/18 14:24 Blood Pressure 113/73 08/09/18 14:24 Pulse Oximetry 100 08/09/18 14:24 Course <ROBYN Sanchez - Last Filed: 08/09/18 23:19> Course Narrative: The patient initially hiatal scan, discussed with patient that was not possible to order in the emergency department. Discussed pros and cons to abdominal CT, patient agreed she would like to obtain an abdominal CT. Orders Ordered: ED Orders 08/09/18 14:28 Complete Blood Count AUTO DIFF Stat Comprehensive Metabolic Panel Stat Lipase Stat Partial Thromboplastin Time Stat Prothrombin Time INR Stat 08/09/18 14:29 DD [D Dimer] Stat 08/09/18 15:04 EKG-12 Lead Stat 08/09/18 15:48 US abdomen limited Stat 08/09/18 17:42 CT abdomen pelvis w con Stat Reevaluation(s) Reevaluation #1: Consultations Consultation #1: Staffed with Dr. Browning who agrees with plan of care. Vital Signs - 8 hr 08/09/18 16:00 08/09/18 18:00 Pulse Rate 56 L 60 Respiratory Rate 16 17 Blood Pressure [Right Arm] 118/63 143/71 H Pulse Oximetry 100 100 <Viji Browning DO - Last Filed: 08/11/18 18:36> Orders Ordered: ED Orders 08/09/18 14:28 Complete Blood Count AUTO DIFF Stat Comprehensive Metabolic Panel Stat Lipase Stat Partial Thromboplastin Time Stat Prothrombin Time INR Stat 08/09/18 14:29 DD [D Dimer] Stat 08/09/18 15:04 EKG-12 Lead Stat 08/09/18 15:48 US abdomen limited Stat 08/09/18 17:42 CT abdomen pelvis w con Stat Vital Signs - 8 hr 08/09/18 16:00 08/09/18 18:00 Pulse Rate 56 L 60 Respiratory Rate 16 17 Blood Pressure [Right Arm] 118/63 143/71 H Pulse Oximetry 100 100 MDM - Abdominal Pain <ROBYN Snachez - Last Filed: 08/09/18 23:19> Differential Diagnosis Differential diagnosis: Likely calculus of kidney and other (gallbladder dyskinesia ) Medical Records Attestation: I reviewed the patient's medical records. Lab Data Attestation: I reviewed the patient's lab results. Result diagrams: 08/09/18 14:28 08/09/18 14:28 Lab Results 08/09/18 08/09/18 08/09/18 Range/Units 14:28 14:28 14:28 WBC 4.1 L (4.5-11.0) X10^3/uL RBC 4.43 (4.0-5.2) X10^6/uL Hgb 14.1 (12.0-16.0) g/dL Hct 41.9 (36-46) % MCV 94.5 (80-100) fL MCH 31.9 (26-34) PG MCHC 33.8 (30-36) % RDW 13.6 (11.6-14.8) % Plt Count 229 (150-400) X10^3/uL Neut % (Auto) 66.4 (50-75) % Lymph % (Auto) 14.0 L (25-40) % [place] % (Auto) 17.6 H (3-14) % Eos % (Auto) 1.3 L (2-4) % Baso % (Auto) 0.7 (0-2) % Neut # (Auto) 2800 (7423-0103) /uL Lymph # (Auto) 600 L (1146-4972) /uL [place] # (Auto) 700 (0-900) /uL Eos # (Auto) 100 (0-450) /uL Baso # (Auto) 0 (0-100) /uL PT 11.4 (10.1-12.7) SECONDS INR 1.0 (0.9-1.3) APTT 32 (26.4-36.2) SECONDS D-Dimer (<230) ng/mL Sodium 141 (137-145) mmol/L Potassium 3.7 (3.4-5.1) mmol/L Chloride 103 (98-107) mmol/L Carbon Dioxide 27 (22-32) mmol/L BUN 14 (7-17) mg/dL Creatinine 0.70 (0.52-1.04) mg/dL Estimated GFR > 60.0 (>60) mL/min BUN/Creatinine Ratio 20.0 (6-22) Glucose 82 (70-100) mg/dL Calcium 9.9 (8.4-10.2) mg/dL Total Bilirubin 0.4 (0.2-1.3) mg/dL AST 24 (14-36) IU/L ALT 17 (9-52) IU/L Alkaline Phosphatase 50 (38-126) U/L Total Protein 7.4 (6.3-8.2) g/dL Albumin 4.5 (3.5-5.0) g/dL Globulin 2.9 (1.7-4.1) g/dL Albumin/Globulin Ratio 1.6 (1.0-2.8) Lipase 125 (23-300) U/L 08/09/18 08/09/18 Range/Units 14:29 15:04 WBC (4.5-11.0) X10^3/uL RBC (4.0-5.2) X10^6/uL Hgb (12.0-16.0) g/dL Hct (36-46) % MCV (80-100) fL MCH (26-34) PG MCHC (30-36) % RDW (11.6-14.8) % Plt Count (150-400) X10^3/uL Neut % (Auto) (50-75) % Lymph % (Auto) (25-40) % [place] % (Auto) (3-14) % Eos % (Auto) (2-4) % Baso % (Auto) (0-2) % Neut # (Auto) (6653-9977) /uL Lymph # (Auto) (7890-5585) /uL [place] # (Auto) (0-900) /uL Eos # (Auto) (0-450) /uL Baso # (Auto) (0-100) /uL PT (10.1-12.7) SECONDS INR (0.9-1.3) APTT (26.4-36.2) SECONDS D-Dimer < 200 Cancelled (<230) ng/mL Sodium (137-145) mmol/L Potassium (3.4-5.1) mmol/L Chloride (98-107) mmol/L Carbon Dioxide (22-32) mmol/L BUN (7-17) mg/dL Creatinine (0.52-1.04) mg/dL Estimated GFR (>60) mL/min BUN/Creatinine Ratio (6-22) Glucose (70-100) mg/dL Calcium (8.4-10.2) mg/dL Total Bilirubin (0.2-1.3) mg/dL AST (14-36) IU/L ALT (9-52) IU/L Alkaline Phosphatase (38-126) U/L Total Protein (6.3-8.2) g/dL Albumin (3.5-5.0) g/dL Globulin (1.7-4.1) g/dL Albumin/Globulin Ratio (1.0-2.8) Lipase (23-300) U/L Point of care testing: Point of Care Testing Test Results Negative Urine Dip Bedside Urine Glucose Negative Bedside Urine Bilirubin - Negative Bedside Urine Ketone - Negative Urine Specific Bruni 1.030 Bedside Urine Occult Blood +/- Bedside Urine pH 5.0 Bedside Urine Protein - Negative Bedside Urine Urobilinogen - Negative Bedside Urine Nitrite + Positive Bedside Urine Leukocytes ++ [address] scan - abdomen: Radiologist's impression: [facility] [place] [id number] [address] Scan Report Signed Patient: Neeta Alatorre RMR#: [id number] : 1965Acct:[id number] Age/Sex: 53 / FDate of Service: 08/09/18 Loc: ED Accession Number: [id number] Procedure: CT abdomen pelvis w con Ordering Provider: Amy Cali PROCEDURE: CT ABDOMEN PELVIS W CON INDICATIONS: RUQ pain x 3 day, tender to palp TECHNIQUE: After the administration of intravenous contrast, 5 mm thick sections acquired from the diaphragm to the symphysis. 5 mm coronal and sagittal reformats were acquired. For radiation dose reduction, the following was used: automated exposure control, adjustment of mA and/or kV according to patient size. COMPARISON: [facility], ABDOMEN LIMITED, 08/09/2018, 16:07. FINDINGS: Image quality: Excellent. ABDOMEN: Lung bases: Lung bases are clear. Heart size is normal. Solid organs: Liver is normal in size and enhancement. Gallbladder wall is not thickened. Biliary system is non dilated. Pancreas enhances normally. Spleen is normal in size and enhancement. No adrenal nodules. Kidneys demonstrate normal size and enhancement, without hydronephrosis. At the inferior pole of the right kidney, there is a nonobstructing stone seen and measures 5 mm. Peritoneum and bowel: Bowel loops demonstrate normal wall thickness and caliber. No free fluid or air. Nodes and vessels: No retroperitoneal or mesenteric adenopathy by size criteria. Aorta and inferior vena cava are normal in size. Miscellaneous: There is a trivial fat-containing paraumbilical hernia present. PELVIS: Genitourinary: Bladder wall thickness is normal. Miscellaneous: No inguinal hernias or adenopathy. Bones: No suspicious bony lesions. There is a mild central compression deformity seen of L5, without acute features. No acute vertebral body compression fractures. Mild levoconvex scoliotic curvature is noted. IMPRESSION: No imaging explanation is found for this patient's presenting history of right upper quadrant pain. Incidental note is made of: 5 mm nonobstructing right-sided kidney stone Levoconvex scoliotic curvature Trivial fat-containing periumbilical hernia Dictated by: Tylor Wells M.D. on 08/09/2018 at 17:07 Approved by: Tylor Wells M.D. on 08/09/2018 at 17:10 US - abdomen: Radiologist's impression: [place] [address] Ultrasound Report Signed Patient: Neeta Alatorre RMR#: [id number] : 1965Acct:[id number] Age/Sex: 53 / FDate of Service: 08/09/18 Loc: ED Accession Number: [id number] Procedure: US abdomen limited Ordering Provider: Viji Browning D.O. PROCEDURE: US ABDOMEN LIMITED INDICATIONS: RIGHT UPPER QUADRANT PAIN TECHNIQUE: Real-time focused scanning was performed of the abdomen, with image documentation. COMPARISON: None. FINDINGS: The gallbladder is slightly contracted. However the patient was suboptimally prepped (non-n.p.o. status). Otherwise, the gallbladder is unremarkable. No wall thickening is seen. No sonographic Call's sign or pericholecystic fluid. Pancreas grossly unremarkable. No intra-or extra hepatic bile duct dilatation seen IMPRESSION: Overall, unremarkable examination as above. Dictated by: Maynor Mancuso M.D. on 08/09/2018 at 16:38 Approved by: Maynor Mancuso M.D. on 08/09/2018 at 16:40 ECG Data Attestation: I personally reviewed and interpreted this ECG as follows: Interpretation: Sinus rhythm, heart rate 59, FL interval 190, QTC 427, no ST elevation, or T-wave inversion, no ectopy. Also reviewed by Dr. Browning. MDM Narrative Medical decision making narrative: I suspect her symptoms are caused by gallbladder dyskinesia or UTI (type of pain, negative imaging, positive urinalysis for leuks and nitrates, negative). Less likely DVT ( negative D- dimer, no tachycardia, no dyspnea, low risk factors), liver disease, pancreatic disease, gallstones, renal stone (negative labs, lack of other symptoms, CT findings). Strict return precautions given. Follow up instructions discussed. Patient agreeable to plan of care. <Viji Browning, DO - Last Filed: 08/11/18 18:36> Lab Data Lab Results 08/09/18 08/09/18 08/09/18 Range/Units 14:28 14:28 14:28 WBC 4.1 L (4.5-11.0) X10^3/uL RBC 4.43 (4.0-5.2) X10^6/uL Hgb 14.1 (12.0-16.0) g/dL Hct 41.9 (36-46) % MCV 94.5 (80-100) fL MCH 31.9 (26-34) PG MCHC 33.8 (30-36) % RDW 13.6 (11.6-14.8) % Plt Count 229 (150-400) X10^3/uL Neut % (Auto) 66.4 (50-75) % Lymph % (Auto) 14.0 L (25-40) % [place] % (Auto) 17.6 H (3-14) % Eos % (Auto) 1.3 L (2-4) % Baso % (Auto) 0.7 (0-2) % Neut # (Auto) 2800 (5811-5719) /uL Lymph # (Auto) 600 L (1090-3393) /uL [place] # (Auto) 700 (0-900) /uL Eos # (Auto) 100 (0-450) /uL Baso # (Auto) 0 (0-100) /uL PT 11.4 (10.1-12.7) SECONDS INR 1.0 (0.9-1.3) APTT 32 (26.4-36.2) SECONDS D-Dimer (<230) ng/mL Sodium 141 (137-145) mmol/L Potassium 3.7 (3.4-5.1) mmol/L Chloride 103 (98-107) mmol/L Carbon Dioxide 27 (22-32) mmol/L BUN 14 (7-17) mg/dL Creatinine 0.70 (0.52-1.04) mg/dL Estimated GFR > 60.0 (>60) mL/min BUN/Creatinine Ratio 20.0 (6-22) Glucose 82 (70-100) mg/dL Calcium 9.9 (8.4-10.2) mg/dL Total Bilirubin 0.4 (0.2-1.3) mg/dL AST 24 (14-36) IU/L ALT 17 (9-52) IU/L Alkaline Phosphatase 50 (38-126) U/L Total Protein 7.4 (6.3-8.2) g/dL Albumin 4.5 (3.5-5.0) g/dL Globulin 2.9 (1.7-4.1) g/dL Albumin/Globulin Ratio 1.6 (1.0-2.8) Lipase 125 (23-300) U/L 08/09/18 08/09/18 Range/Units 14:29 15:04 WBC (4.5-11.0) X10^3/uL RBC (4.0-5.2) X10^6/uL Hgb (12.0-16.0) g/dL Hct (36-46) % MCV (80-100) fL MCH (26-34) PG MCHC (30-36) % RDW (11.6-14.8) % Plt Count (150-400) X10^3/uL Neut % (Auto) (50-75) % Lymph % (Auto) (25-40) % [place] % (Auto) (3-14) % Eos % (Auto) (2-4) % Baso % (Auto) (0-2) % Neut # (Auto) (5632-1115) /uL Lymph # (Auto) (6625-1050) /uL [place] # (Auto) (0-900) /uL Eos # (Auto) (0-450) /uL Baso # (Auto) (0-100) /uL PT (10.1-12.7) SECONDS INR (0.9-1.3) APTT (26.4-36.2) SECONDS D-Dimer < 200 Cancelled (<230) ng/mL Sodium (137-145) mmol/L Potassium (3.4-5.1) mmol/L Chloride (98-107) mmol/L Carbon Dioxide (22-32) mmol/L BUN (7-17) mg/dL Creatinine (0.52-1.04) mg/dL Estimated GFR (>60) mL/min BUN/Creatinine Ratio (6-22) Glucose (70-100) mg/dL Calcium (8.4-10.2) mg/dL Total Bilirubin (0.2-1.3) mg/dL AST (14-36) IU/L ALT (9-52) IU/L Alkaline Phosphatase (38-126) U/L Total Protein (6.3-8.2) g/dL Albumin (3.5-5.0) g/dL Globulin (1.7-4.1) g/dL Albumin/Globulin Ratio (1.0-2.8) Lipase (23-300) U/L Point of care testing: Point of Care Testing Test Results Negative Urine Dip Bedside Urine Glucose Negative Bedside Urine Bilirubin - Negative Bedside Urine Ketone - Negative Urine Specific Bruni 1.030 Bedside Urine Occult Blood +/- Bedside Urine pH 5.0 Bedside Urine Protein - Negative Bedside Urine Urobilinogen - Negative Bedside Urine Nitrite + Positive Bedside Urine Leukocytes ++ 125 Esterase Discharge Plan Departure Patient Disposition: Home Clinical Impression: UTI (urinary tract infection) Qualifiers: Urinary tract infection type: acute cystitis Hematuria presence: without hematuria Qualified Code(s): N30.00 - Acute cystitis without hematuria Abdominal pain Qualifiers: Abdominal location: right upper quadrant Qualified Code(s): R10.11 - Right up per quadrant pain Discharge Date/Time: 08/09/18 18:46 Interventions: ED Discharge Assessment Last Done: 08/09/18 18:45 Instructions: DI for Urinary Tract Infection (UTI), DI for Abdominal Pain-Adult Activity Restrictions/Additional Instructions: As we discussed, you're CT, labs, and ultrasound do not explain your abdominal pain. You're urine results show a possible urinary tract infection, so I am prescribing antibiotics to treat that. Please follow up with her primary care provider for further testing. Return if he developed chest pain, shortness of breath, syncope, and confusion. Thank you for the opportunity to provide care to you today. Prescriptions: New sulfamethoxazole-trimethoprim 800-160 mg tablet 1 tab PO BID Qty: 6 RF: 0 No Action eszopiclone 1 MG tablet 1 mg PO PRN PRN (Reason: Sleep) Qty: 0 RF: 0 oxcarbazepine 150 MG tablet 150 mg PO BID Qty: 60 RF: 0 lithium carbonate 150 mg capsule 150 mg PO BID RF: 0 gabapentin 100 mg capsule 100 mg PO TID RF: 0 Gilenya 0.5 mg capsule 0.5 mg PO DAILY RF: 0 <Viji Browning DO - Last Filed: 08/11/18 18:36> Cosign ED Attending Cosignature Attestation: I was immediately available in the department for consultation, case was discussed, labs/imaging reviewed. This documentation has been reviewed and I agree with assessment and plan. Supervised by Viji Browning DO
[2018-08-09 18:00] VITALS: BP 143/71; PULSE 60; RESP 17; O2SAT 100
== END 2018-08-09 18:46 | disposition home or self-care (01) ==
PROVIDERS: Emergency Medicine; Emergency Provider Nurse Practitioner; Family Provider Chiropractor
DX: N30.00 Acute cystitis without hematuria (principal); R10.11 Right upper quadrant pain; K59.00 Constipation, unspecified; R11.0 Nausea
CPT/HCPCS: 36591; 74177; 76705; 80053; 81003; 81025; 83690; 85025; 85379; 85610; 85730; 93005; 93010; 99283; 99285; Q9967

== ENCOUNTER → 2019-03-31 12:08 | Outpatient (CLI) | payer BC, SELFPAY | PROVIDERS: Family Provider Chiropractor; Visit Provider Physician Assistant | DX: L73.1 Pseudofolliculitis barbae (principal) | CPT/HCPCS: 87070; 87077; 87186; 87205 ==

== ENCOUNTER → 2019-08-29 11:16 | Outpatient (CLI) | payer BC, SELFPAY ==
--- NOTE | 2019-08-29 | DI.RAD.S_ITS ---
PROCEDURE: XR WRIST LT MIN 3V INDICATIONS: LEFT WRIST PAIN TECHNIQUE: 4 views of the wrist were acquired. COMPARISON: None. FINDINGS: Bones: No fractures or dislocations. No suspicious bony lesions. Degenerative changes are seen, which are most prominent involving the 1st carpometacarpal joint, where there is prominent joint space narrowing with associated subchondral sclerosis and irregularity. Fragmented osteophyte formation can be seen. Milder degenerative changes are seen elsewhere. Note is made of negative ulnar variance. This can predispose to development of AVN of the lunate. However, no findings of AVN of the lunate are seen on these plain films. Scaphoid view: No navicular fractures are seen. Soft tissues: No suspicious soft tissue calcifications. IMPRESSION: Focal 1st metacarpal joint degenerative change. Dictated by: Tylor Wells M.D. on 08/29/2019 at 11:57 Approved by: Tylor Wells M.D. on 08/29/2019 at 11:58
[2019-08-29 12:35] LABS: Add Manual Diff / Slide Review NO; Basophils Absolute Auto 0 /uL (0-100); Basophils Percent Auto 0.5 % (0-2); Eosinophils Absolute Auto 0 /uL (0-450); Eosinophils Percent Auto 0.4 % (2-4); Hematocrit 39.8 % (36-46); Hemoglobin 13.5 g/dL (12.0-16.0); Lymphocytes Absolute Auto 1900 /uL (1100-4500); Lymphocytes Percent Auto 44.5 % (25-40); Mean Corpuscular Hemoglobin 31.8 PG (26-34); Mean Corpuscular Volume 93.6 fL (80-100); Monocytes Absolute Auto 500 /uL (0-900); Monocytes Percent Auto 12.5 % (3-14); Neutrophils Absolute Auto 1800 /uL (1500-7000); Neutrophils Percent Auto 42.1 % (50-75); Platelet Count 230 X10^3/uL (150-400); Red Blood Cell Count 4.25 X10^6/uL (4.0-5.2); Red Cell Distribution Width 13.1 % (11.6-14.8); White Blood Cell Count 4.2 X10^3/uL (4.5-11.0)
[2019-08-29 13:10] LABS: Alanine Aminotransferase 22 IU/L (<35); Albumin 4.5 g/dL (3.5-5.0); Albumin Globulin Ratio 1.6 (1.0-2.8); Alkaline Phosphatase 59 U/L (38-126); Aspartate Aminotransferase 33 IU/L (14-36); BUN Creatinine Ratio 26.6 (6-22); Bilirubin Total 0.3 mg/dL (0.2-1.3); Blood Urea Nitrogen 17 mg/dL (7-17); Calcium 10.2 mg/dL (8.4-10.2); Carbon Dioxide 24 mmol/L (22-32); Chloride 106 mmol/L (98-107); Cholesterol 153 mg/dL (140-199); Estimated Glomerular Filt Rate > 60.0 mL/min (>60); Globulin 2.8 g/dL (1.7-4.1); Glucose 115 mg/dL (70-100); HDL Cholesterol 57 mg/dL (40-60); HEMOLYSIS < 15 (0-50); LDL Cholesterol Calculated 85 mg/dL (<100); Potassium 4.3 mmol/L (3.4-5.1); Sodium 139 mmol/L (137-145); Total Protein 7.3 g/dL (6.3-8.2); Triglycerides 57 mg/dL (35-150)
[2019-08-29 13:39] LABS: Thyroid Stimulating Hormone 0.91 uIU/mL (0.47-4.68)
== END ==
PROVIDERS: Family Provider Chiropractor; PCP Family Medicine; Referring Provider Family Medicine; Visit Provider Naturopath
DX: Z00.00 Encounter for general adult medical examination without abnormal findings (principal); M25.532 Pain in left wrist; Z79.899 Other long term (current) drug therapy
CPT/HCPCS: 36415; 73110; 80053; 80061; 84443; 85025

== ENCOUNTER → 2020-10-02 10:36 | Outpatient (CLI) | payer OTHER, SELFPAY ==
[2020-10-02 20:04] LABS: Add Manual Diff / Slide Review NO; Basophils Absolute Auto 0 /uL (0-100); Basophils Percent Auto 0.5 % (0-2); Eosinophils Absolute Auto 0 /uL (0-450); Eosinophils Percent Auto 0.7 % (2-4); Hematocrit 41.8 % (36-46); Hemoglobin 14.1 g/dL (12.0-16.0); Lymphocytes Absolute Auto 2200 /uL (1100-4500); Lymphocytes Percent Auto 44.6 % (25-40); Mean Corpuscular HGB Conc 33.7 % (30-36); Mean Corpuscular Hemoglobin 31.8 PG (26-34); Mean Corpuscular Volume 94.3 fL (80-100); Monocytes Absolute Auto 500 /uL (0-900); Monocytes Percent Auto 11.1 % (3-14); Neutrophils Absolute Auto 2100 /uL (1500-7000); Neutrophils Percent Auto 43.1 % (50-75); Platelet Count 248 X10^3/uL (150-400); Red Blood Cell Count 4.44 X10^6/uL (4.0-5.2); White Blood Cell Count 4.9 X10^3/uL (4.5-11.0)
[2020-10-02 20:23] LABS: Alanine Aminotransferase 19 IU/L (<35); Albumin 4.4 g/dL (3.5-5.0); Albumin Globulin Ratio 1.5 (1.0-2.8); Alkaline Phosphatase 81 U/L (38-126); Aspartate Aminotransferase 30 IU/L (14-36); BUN Creatinine Ratio 22.8 (6-22); Bilirubin Total 0.6 mg/dL (0.2-1.3); Blood Urea Nitrogen 13 mg/dL (7-17); Carbon Dioxide 28 mmol/L (22-32); Chloride 104 mmol/L (98-107); Cholesterol 177 mg/dL (140-199); Estimated Glomerular Filt Rate > 60.0 mL/min (>60); Glucose 81 mg/dL (70-100); HDL Cholesterol 65 mg/dL (40-60); HEMOLYSIS < 15 (0-50); LDL Cholesterol Calculated 97 mg/dL (<100); Potassium 4.4 mmol/L (3.4-5.1); Sodium 139 mmol/L (137-145); Total Protein 7.4 g/dL (6.3-8.2); Triglycerides 76 mg/dL (35-150)
== END ==
PROVIDERS: Family Provider Chiropractor; PCP Family Medicine; Visit Provider Family Medicine
DX: F31.9 Bipolar disorder, unspecified (principal); G35 Multiple sclerosis; Z13.220 Encounter for screening for lipoid disorders
CPT/HCPCS: 80053; 80061; 85025

== ENCOUNTER 2023-12-06 11:36 | Emergency (ER) | payer OTHER, SELFPAY ==
[2023-12-06 11:49] VITALS: BP 139/80; PULSE 65; RESP 16; TEMP 36.6; O2SAT 96; BMI 34.4
--- NOTE | 2023-12-06 12:01 | ED.FALL ---
HPI - Fall <Antonieta Hurley PA-C - Last Filed: 12/06/23 13:03> General Chief Complaint: Fall Stated Complaint: Fall, rib px Time Seen by Provider: 12/06/23 12:00 Source: patient Mode of arrival: Ambulatory History of Present Illness HPI Narrative: Patient is a very pleasant 58-year-old female presents to the emergency room today with complaints left-sided chest discomfort and pain. Patient was walking down some stairs misstepped, fell down 1 stairs landing on the left chest area and rib area on 12/01. She has been attempting to treat her discomfort and pain with [id number] supportive therapy ice, and Tylenol. She has had some minimal relief. However has had substantial difficulty sleeping. Position of comfort is sitting, she has difficulty and increasing pain with movement and breathing. Not exacerbated with twisting or overhead reaching. She has no bruising. There was no loss of conscious. She has no other physical complaints currently at this time. Related Data Home Medications Medication Instructions Recorded Confirmed eszopiclone 1 mg tablet 1 mg PO PRN PRN Sleep ##0 05/07/16 10/12/20 conjugated estrogens 0.625 mg/gram 0.625 mg vaginal 2XW 09/26/20 10/12/20 vaginal cream (Premarin) cyanocobalamin (vitamin B-12) PO 09/26/20 10/12/20 ergocalciferol (vitamin D2) 1,250 1,250 mcg PO QWEEK 09/26/20 10/12/20 mcg (50,000 unit) capsule magnesium 200 mg tablet See Rx Instructions PO BID 09/26/20 10/12/20 gabapentin 100 mg capsule 100 mg PO BEDTIME PRN 09/27/20 10/12/20 Allergies Allergy/AdvReac Type Severity Reaction Status Date / Time lamotrigine Allergy Unknown Rash Verified 10/10/20 12:11 lorazepam Allergy Unknown Verified 10/10/20 12:11 Review of Systems <Antonieta Hurley PA-C - Last Filed: 12/06/23 13:03> Review of Systems Narrative: Negative except as above Musculoskeletal Comments: Left rib pain, under her left breast, and some left chest discomfort after a fall that she sustained on 12/01. Patient History <Antonieta Hurley PA-C - Last Filed: 12/06/23 13:03> Medical History Insomnia Hypocholesteremia MTHFR mutation Finger pain Chronic right SI joint pain Patellofemoral dysfunction of right knee Urinary frequency Cognitive disorder Benign neoplasm of colon Cognitive communication deficit Decreased functional activity tolerance Bilateral knee pain Weakness of left side of body Sacroiliac joint dysfunction of right side Numbness Gluteal tendinitis of right buttock Depression Vitamin D deficiency Neurogenic bladder Restless legs Pleuritic chest pain Right upper quadrant pain Multiple sclerosis Surgical History H/O reduction mammoplasty Status post breast reduction Family History Brother Age: 69 Alcoholic Father Heart disease Essential hypertension High cholesterol Mental health problem Mother Alcoholic Social History Smoking Status: Never smoker Smoking Status: Never smoker alcohol intake frequency: 0-2 drinks per day Substance Use Type: does not use Exam <Antonieta Hurley PA-C - Last Filed: 12/06/23 13:03> Initial Vital Signs Initial Vital Signs: Vital Signs Temperature 97.9 F 12/06/23 11:49 Pulse Rate 65 12/06/23 11:49 Respiratory Rate 16 12/06/23 11:49 Blood Pressure 139/80 12/06/23 11:49 Pulse Oximetry 96 12/06/23 11:49 Oxygen Delivery Method Room Air 12/06/23 11:49 Reviewed Const General: cooperative, healthy appearing and comfortable Other: Pleasant 58-year-old female who presents to the emergency room department, she is pleasant, she is articulate, she is ambulatory. Mild central obesity. Eyes Other: Generally her eyes are normal, pupils are PERRLA, EOMs are intact Neck Other: No cervical midline tenderness, full range of motion. Chest Other: Mild discomfort with palpation over the left breast area. Underneath the left breast and lateral left chest area. No bruising is noted. Resp Other: Lungs are clear to auscultation anterior and posterior aspects, no wheezes, rales, rhonchi or crackles are noted. Patient does have discomfort and pain with inspiration expiration. Cardio Other: Regular rate rhythm without any murmurs rubs or gallops Skin Other: No bruising per the patient Neuro Other: Cranial nerves are intact, cognition, speech, gait, motor, sensory is all intact. Extrem Other: Range of motion, strength, pulses, cap refill preserved in the upper and lower extremities <Viji Garay MD - Last Filed: 12/06/23 13:23> Initial Vital Signs Initial Vital Signs: Vital Signs Temperature 97.9 F 12/06/23 11:49 Pulse Rate 65 12/06/23 11:49 Respiratory Rate 16 12/06/23 11:49 Blood Pressure 139/80 12/06/23 11:49 Pulse Oximetry 96 12/06/23 11:49 Oxygen Delivery Method Room Air 12/06/23 11:49 Course <Antonieta Hurley PA-C - Last Filed: 12/06/23 13:03> Orders Ordered: ED Orders 12/06/23 12:00 XR ribs LT min 3V w CXR1V Stat Discontinued Medications Acetaminophen (Acetaminophen 325 Mg Tablet) 975 mg PO NOW ONE Stop: 12/06/23 12:16 Last Admin: 12/06/23 12:06 Dose: 975 mg Documented By: ES Vital Signs Vital signs: Vital Signs - 8 hr 12/06/23 11:49 Temperature 97.9 F Pulse Rate 65 Respiratory Rate 16 Blood Pressure 139/80 Pulse Oximetry 96 Oxygen Delivery Method Room Air <Viji Garay MD - Last Filed: 12/06/23 13:23> Orders Ordered: ED Orders 12/06/23 12:00 XR ribs LT min 3V w CXR1V Stat Discontinued Medications Acetaminophen (Acetaminophen 325 Mg Tablet) 975 mg PO NOW ONE Stop: 12/06/23 12:16 Last Admin: 12/06/23 12:06 Dose: 975 mg Documented By: ES Vital Signs Vital signs: Vital Signs - 8 hr 12/06/23 11:49 Temperature 97.9 F Pulse Rate 65 Respiratory Rate 16 Blood Pressure 139/80 Pulse Oximetry 96 Oxygen Delivery Method Room Air MDM - Fall <Antonieta Hurley PA-C - Last Filed: 12/06/23 13:03> Imaging Data Chest x-ray: My Impression: Chest x-ray and left ribs chest x-ray negative for any acute findings, there has no Cardiothoracic intrathoracic processes, the left rib series negative for any acute fractures. Radiologist's Impression: [address] [address] XRay Report Signed Patient: Neeta Borrego MR#: [id number] : 1965 Acct:[id number] Age/Sex: 58 / F Date of Service: 12/06/23 Loc: ED Accession Number: [id number] Procedure: XR ribs LT min 3V w CXR1V Ordering Provider: Antonieta Hurley PA-C PROCEDURE: XR RIBS LT MIN 3V W CXR1V INDICATIONS: fall pain TECHNIQUE: 2 views of the ribs were acquired, along with a single view chest. COMPARISON: None. FINDINGS: Surgical changes and devices: None. Bones and chest wall: No fractures or dislocations. No suspicious bony lesions. Overlying soft tissues appear unremarkable. Lungs and pleura: No pleural effusions or pneumothorax. Lungs appear clear. Mediastinum: Mediastinal contours appear normal. Heart size is normal. IMPRESSION: No displaced rib fracture or pneumothorax. Dictated by: Eric Stevens M.D. on 12/06/2023 at 11:33 Approved by: Eric Stevens M.D. on 12/06/2023 at 11:33 [facility] Narrative Medical decision making narrative: Pleasant 58 year fell on she misjudged the stairs landing on the left side of her body on cement. Patient complains he. With movement and breathing be with some relief his in distress. 1000 mg of p.o. Tylenol Chest x-ray with left rib series Patient's chest x-ray and rib series were negative for any acute fractures Respiratory came down and went over IS training with the patient she was discharged with an inspirometer Differential diagnosis; fall, chest contusion, traumatic chest contusion, costochondritis, rib contusion, rib fracture, musculoskeletal pain, chest strain, musculoskeletal strain. Discharge Plan Departure Patient Disposition: Home Clinical Impression: Costochondritis Chest wall contusion Qualifiers: Encounter type: initial encounter Laterality: left Qualified Code(s): S20.212A - Contusion of left front wall of thorax, initial encounter Activity Restrictions/Additional Instructions: Ice for the 1st 72 hours and ice and heat, you can use topical preparations on the chest area. Myml-[id number] ibuprofen and Tylenol back and forth for discomfort and pain. Continue with her gabapentin in the evening. A prescription has been sent to your pharmacy for acute and severe pain. Please note drinking, or using power tools, or driving a vehicle under the influence of the medication. Please follow up with your primary care doctor. Return to the emergency department as needed. X-ray negative for fracture Prescriptions: No Action eszopiclone 1 MG tablet 1 mg PO PRN PRN (Reason: Sleep) Qty: 0 gabapentin 100 mg capsule 100 mg PO BEDTIME PRN ergocalciferol (vitamin D2) 1,250 mcg (50,000 unit) capsule 1,250 mcg PO QWEEK magnesium 200 mg tablet See Rx Instructions PO BID Rx Instructions: Take 1 1/2 tablets (300mg) by mouth twice a day; cyanocobalamin (vitamin B-12) PO Premarin 0.625 mg/gram cream 0.625 mg vaginal 2XW Referrals: Haydee Montalvo MD [Primary Care Provider] - Stand Alone Forms: Patient Portal/API ED Sign-out <Viji Garay MD - Last Filed: 12/06/23 13:23> Cosign ED Attending Cosangelaature Attestation: I did not see this patient. I was available all times for consultation.
[2023-12-06] MEDS: ACETAMINOPHEN 325 MG TABLET 975 MG PO (12:06)
== END 2023-12-06 13:02 | disposition home or self-care (01) ==
PROVIDERS: Emergency Provider Physician Assistant; Family Provider Chiropractor; PCP Family Medicine
DX: S20.212A Contusion of left front wall of thorax, initial encounter (principal); M94.0 Chondrocostal junction syndrome [Tietze]; W10.9XXA Fall (on) (from) unspecified stairs and steps, initial encounter
CPT/HCPCS: 71101; 99283

== ENCOUNTER → 2025-01-12 11:36 | Outpatient (CLI) | payer OTHER, SELFPAY ==
--- NOTE | 2025-01-12 11:38 | DI.US.S_ITS ---
PROCEDURE: US ABDOMEN LIMITED INDICATIONS: RUQ pain TECHNIQUE: Real-time scanning was performed of the abdominal and retroperitoneal organs, with image documentation. COMPARISON: [facility], , US ABDOMEN LIMITED, 08/09/2018, 16:07. FINDINGS: Liver: Liver is normal in size and increased in echogenicity. Gallbladder: No gallstones. No wall thickening. No pericholecystic edema. Negative sonographic Call's sign. Biliary ducts: Intrahepatic bile ducts are non-dilated. Common bile duct is not well seen. Pancreas: Visualized portions of the pancreas are sonographically normal. Tail is not well seen. Miscellaneous: No free abdominal fluid. IMPRESSION: 1. No cause for patient's pain is identified. 2. Liver is increased in echogenicity, most consistent with hepatic steatosis. Dictated by: John Guajardo M.D. on 01/12/2025 at 13:01 Approved by: John Guajardo M.D. on 01/12/2025 at 13:02
== END ==
LOC: US 11:38
PROVIDERS: Family Provider Chiropractor; PCP Family Medicine; Referring Provider Family Medicine; Visit Provider Family Medicine
DX: R10.11 Right upper quadrant pain (principal)
CPT/HCPCS: 76705